=== PATIENT | female | born 1995 | race Two or more races ===

== ENCOUNTER → 2017-04-13 19:09 | Outpatient (CLI) | payer SELFPAY ==
[2015-06-18 18:36] VITALS: BMI 30.5
[~2017-04-13 19:09] MED LIST: CELEXA20 MG PO; IBUPROFEN600 MG PO; MOTRIN600 MG PO; PERCOCET 5-3251 TAB PO
== END | disposition home or self-care (01) ==
LOC: D.LDO 19:09
PROVIDERS: Obstetrics & Gynecology
DX: O26.893 Other specified pregnancy related conditions, third trimester (principal); Z3A.32 32 weeks gestation of pregnancy

== ENCOUNTER → 2017-04-19 16:17 | Outpatient (CLI) | payer SELFPAY ==
[2015-06-18 18:36] VITALS: BMI 30.5
[2017-04-19 18:20] LABS: APPEARANCE CLEAR (CLEAR); BILIRUBIN NEGATIVE (NEGATIVE); COLOR YELLOW (YELLOW); GLUCOSE NEGATIVE (NEGATIVE); KETONE NEGATIVE (NEGATIVE); NITRITE NEGATIVE (NEGATIVE); PROTEIN NEGATIVE (NEGATIVE); UROBILINOGEN NORMAL (NORMAL)
== END | disposition home or self-care (01) ==
LOC: D.LDO 16:17
PROVIDERS: Obstetrics & Gynecology
DX: O26.893 Other specified pregnancy related conditions, third trimester (principal); Z3A.32 32 weeks gestation of pregnancy

== ENCOUNTER → 2017-04-25 17:01 | Outpatient (CLI) | payer SELFPAY ==
[2015-06-18 18:36] VITALS: BMI 30.5
[2017-04-25 17:49] LABS: APPEARANCE CLEAR (CLEAR); BILIRUBIN NEGATIVE (NEGATIVE); COLOR STRAW (YELLOW); GLUCOSE NEGATIVE (NEGATIVE); KETONE NEGATIVE (NEGATIVE); NITRITE NEGATIVE (NEGATIVE); PROTEIN NEGATIVE (NEGATIVE); UROBILINOGEN NORMAL (NORMAL)
== END | disposition home or self-care (01) ==
LOC: D.LDO 17:01 → D.LABREF 17:01
PROVIDERS: Obstetrics & Gynecology
DX: O26.893 Other specified pregnancy related conditions, third trimester (principal); Z3A.34 34 weeks gestation of pregnancy; R10.2 Pelvic and perineal pain; R22.43 Localized swelling, mass and lump, lower limb, bilateral; R11.0 Nausea

== ENCOUNTER 2017-06-02 08:26 | Inpatient (IN) | payer MEDICAID ==
[~2017-06-02] VITALS: Ht 149.9 cm; Wt 71.7 kg
[~2017-06-02 08:26] MED LIST changes: -CELEXA20 MG PO; -MOTRIN600 MG PO
[2017-06-02 08:54] LABS: HEMATOCRIT 37.6 % (36.0-48.0); HEMOGLOBIN 12.8 g/dL (12-16); MCH 27.8 pg (26.0-34.0); MCV 81.7 fL (80.0-100.0); MEAN PLATELET VOLUME 10.2 fL (7.4-10.4); RBC 4.6 10x6/uL (4.00-5.40); RDW 16.4 % (11.5-14.5); WBC 9.6 10x3/uL (4.8-10.8)
[2017-06-02 10:30] LABS: APPEARANCE CLEAR (CLEAR); BILIRUBIN NEGATIVE (NEGATIVE); COLOR YELLOW (YELLOW); GLUCOSE NEGATIVE (NEGATIVE); KETONE NEGATIVE (NEGATIVE); NITRITE NEGATIVE (NEGATIVE); PROTEIN NEGATIVE (NEGATIVE); SPECIFIC GRAVITY 1.005 (1.005-1.020); UROBILINOGEN NORMAL (NORMAL)
[2017-06-02] MEDS ORDERED: CELEXA20 MG PO (10:32)
[2017-06-02 10:33] VITALS: BP 119/78; Ht 149.9 cm; Wt 71.7 kg
--- NOTE | 2017-06-02 15:00 | NUR ---
pt calls out department chairperson light, pt wishes to get up to br. fundus firm, u/1, small rubra lochia, no clots. iv pitocin completed. iv saline locked. pt assisted up to br, gait slow and steady. to br, voids per self without difficulty. no clots noted. pericare done per self with warm wet washcloths, and peribottle. clean peripanties, and pads on. clean gown on. pt then transferred to #[id number] by wheelchair.
--- NOTE | 2017-06-02 15:25 | NUR ---
to bed, oriented to room. sr up x 2, call light and phone within reach. family at bedside. transported to [facility] by crib. nsy notified. pt requests ice water, served. denies other needs at this time.
--- NOTE | 2017-06-02 17:00 | NUR ---
dietary serves supper tray. pt denies needs at this time. family at bedside. sr up x2, call light and phone within reach.
--- NOTE | 2017-06-02 18:00 | NUR ---
pt denies needs at this time. family at bedside. sr up x 2, call light and phone within reach.
--- NOTE | 2017-06-02 19:21 | NUR ---
RN TO BEDSIDE. PT BREAST FEEDING INFANT AT THIS TIME. DENIES NEEDS. S/O AT BEDSIDE. BED IN LOW POSITION WITH UPPER SIDE RAILS RAISED X2. CL AND PHONE WITHIN REACH. WILL CONT TO MONITOR AND ASSIST PRN.
[2017-06-02 19:49] VITALS: BP 117/73
--- NOTE | 2017-06-02 19:49 | NUR ---
RN TO BEDSIDE. PT REPORTS THAT SHE JUST COMPLETED BREAST FEEDING. SHIFT ASSESSMENT COMPLETED. VSS. FUNDUS FIRM, U2 AND MIDLINE, SMALL AMT RUBRA LOCHIA TO PERIPAD, NO CLOTS. PAIN 4/10, INTERMITTENT ABD CRAMPING. RESPIRATIONS REGULAR AND UNLABORED, BREATH SOUNDS CLEAR AND EQUAL. BOWEL SOUNDS PRESENT AND ACTIVE X4. PT REPORTS THAT SHE IS PASSING FLATUS. PERINUM INTACT, WITH MILD SWELLING NOTED. REFUSES ICE PACK AT THIS TIME. MOTRIN GIVEN FOR PAIN. ICE WATER AND CUP OF ICE PROVIDED. BED IN LOW POSITION WITH UPPER SIDE RAILS RAISED X2. CL AND PHONE WITHIN REACH. WILL CONT TO MONITOR AND ASSIST PRN.
--- NOTE | 2017-06-02 20:35 | NUR ---
PAIN REASSESSMENT COMPLETED. PAIN 07/31. DENIES ADDITIONAL NEEDS AT THIS TIME. BONDING WITH . S/O AT BEDSIDE SUPPORTIVE AND ATTENTIVE PT AND 'S NEEDS. BED IN LOW POSITION WITH UPPER SIDE RAILS RAISED X2. CL AND PHONE WITHIN REACH. WILL CONT TO MONITOR AND ASSIST PRN.
--- NOTE | 2017-06-02 21:10 | NUR ---
RN TO BEDSIDE FOR ROUNDS. PT UP IN BATHROOM VOIDING. STATES THAT SHE PASSED "A FEW CLOTS." 3 DIME SIZED CLOTS NOTED TO PERIPAD, 1 QUARTER SIZED CLOT NOTED IN TOILET. SMALL AMT RUBRA LOCHIA NOTED TO PERIPAD. PT BACK TO BED. FUNDUS CHECK DONE, REMAINS FIRM U2 AND MIDLINE. DENIES NEEDS AT THIS TIME. DENIES PAIN. S/O AT BEDSIDE, SUPPORTIVE AND ATTENTIVE TO PT AND . INFANT IN S/O ARMS. BED IN LOW POSITION WITH UPPER SIDE RAILS RAISED X2. CL AND PHONE WITHIN REACH. WILL CONT TO MONITOR AND ASSIST PRN.
--- NOTE | 2017-06-02 22:18 | NUR ---
RN TO BEDSIDE FOR ROUNDS. PT SITTING UP IN BED BREAST FEEDING . SHAHNAZ CLEMENS RN AT BEDSIDE ASSISTING PT. PT DENIES NEEDS AT THIS TIME. C/O CRAMPING, BUT DENIES NEED FOR INTERVENTION. BED IN LOW POSITION WITH UPPER SIDE RAILS RAISED X2. CL AND PHONE WITHIN REACH. WILL CONT TO MONITOR AND ASSIST PRN.
--- NOTE | 2017-06-03 00:02 | NUR ---
RN TO BEDSIDE FOR ROUNDS. PT RESTING QUIETLY WITH EYES CLOSED ON LEFT SIDE. RESPIRATIONS REGULAR AND UNLABORED, NO S/S OF DISTRESS NOTED. S/O RESTING ON COUCH AT BEDSIDE. INFANT IN OPEN CRIB AT BEDSIDE RESTING QUIETLY, RESPIRATIONS REGULAR AND UNLABORED, NO S/S OF DISTRESS NOTED. BED IN LOW POSITION WITH UPPER SIDE RAILS RAISED X2. CL AND PHONE WITHIN REACH. WILL CONT TO MONITOR AND ASSIST PRN.
--- NOTE | 2017-06-03 02:40 | NUR ---
RN TO BEDSIDE FOR ROUNDS. PT RESTING WITH EYES CLOSED. FOUND IN BED LAYING NEXT TO MOM. PT WOKE BY RN, REINFORCED THAT INFANT CAN'T BE IN BED WITH HER WHILE SHE IS SLEEPING, VERBALIZED UNDERSTANDING AND REQUESTED RN TAKE INFANT TO NBN. C/O ABD CRAMPING, 10/28, MOTRIN GIVEN. ICE WATER PROVIDED. DENIES ADDITIONAL NEEDS. S/O REMAINS ON COUCH AT BEDSIDE RESTING. BED IN LOW POSITION WITH UPPER SIDE RAILS RAISED X2. CL AND PHONE WITHIN REACH. INFANT TAKEN TO NBN BY RN PER PT REQUEST. WILL CONT TO MONITOR AND ASSIST PRN.
--- NOTE | 2017-06-03 03:25 | NUR ---
PAIN REASSESSMENT COMPLETED. PT RESTING WITH EYES CLOSED ON RIGHT SIDE. RESPIRATIONS REGULAR AND UNLABORED. NO S/S OF DISTRESS NOTED. BED IN LOW POSITION WITH UPPER SIDE RAILS RAISED X2. CL AND PHONE WITHIN REACH. INFANT REMAINS IN NBN. WILL CONTINUE TO MONITOR AND ASSIST PRN.
--- NOTE | 2017-06-03 04:10 | NUR ---
RN TO BEDSIDE FOR ROUNDS. PT RESTING QUIETLY WITH EYES CLOSED LAYING ON LEFT SIDE. RESPIRATIONS REGULAR AND UNLABORED, NO S/S OF DISTRESS. REMAINS IN NBN. BED IN LOW POSITION WITH UPPER SIDE RAILS RAISED X2. CL AND PHONE WITHIN REACH. WILL CONT TO MONITOR AND ASSIST PRN.
--- NOTE | 2017-06-03 06:08 | NUR ---
RN TO BEDSIDE FOR ROUNDS. LAB AT BEDSIDE DRAWING LABS. PT STATES PAIN 2/10, INTERMITTENT ABD CRAMPING. DENIES NEEDS AT THIS TIME. S/O REMAINS AT BEDSIDE. PT STATES THAT SHE IS STILL VOIDING WITHOUT DIFFICULTY AND HAS HAD NO MORE CLOTS SINCE PREVIOUS ASSESSMENT. BED IN LOW POSITION WITH UPPER SIDE RAILS RAISED X2. CL AND PHONE WITHIN REACH. WILL CONT TO MONITOR AND ASSIST PRN.
[2017-06-03 06:34] LABS: BASOPHILS 0.2 % (0-2); EOSINOPHILS 0.5 % (0-7); IMMATURE GRANULOCYTES 0.4 % (0-5); LYMPHOCYTES 32.4 % (15-50); MCH 27.4 pg (26.0-34.0); MCHC 33.4 g/dL (31.0-37.0); MCV 81.8 fL (80.0-100.0); MONOCYTES 4.5 % (2-11); PLATELET COUNT 183 10x3/uL (130-400); RDW 16.5 % (11.5-14.5); WBC 10.8 10x3/uL (4.8-10.8)
[2017-06-03 06:35] LABS: HEMATOCRIT 29.3 % (36.0-48.0); HEMOGLOBIN 9.8 g/dL (12-16); RBC 3.58 10x6/uL (4.00-5.40)
--- NOTE | 2017-06-03 07:12 | NUR ---
REPORT TO DAY SHIFT.
--- NOTE | 2017-06-03 07:54 | NUR ---
AM ASSESSMENT COMPLETED CHARTED ON FLOWSHEET. FUNDUS FIRM AT U/U WITH LIGHT BLEEDING TO SERGEY PAD. PT FEEDING INFANT AT THIS TIME AND DENIES ANY QUESTIONS OR CONCERN. SPOUSE AND TODDLER SON ALSO AT BEDSIDE.
[2017-06-03 08:22] LABS: RAPID PLASMA REAGIN Non Reactive (Non Reactive)
--- NOTE | 2017-06-03 10:30 | NUR ---
ROUNDS MADE, PT DENIES ANY NEEDS AT THIS TIME.
--- NOTE | 2017-06-03 12:23 | NUR ---
PT SITTING UP IN BED WITH TO BREAST, REGULAR DIET TRAY SERVED AND LARGE ICE WATER PER REQUEST. ALSO PLACED TOWELS AND SHOWER SUPPLIES IN BATHROOM AND PT STATES UNDERSTANDING TO CALL NURSE IF ANY ASSISTANCE IS NEEDED.
--- NOTE | 2017-06-03 13:45 | NUR ---
PT CALLS FOR NURSE, THIS RN TO ROOM. PT ASKING FOR A STOOL SOFTNER, ORDERS CHECKED AND EXPLAINED TO HER THAT AT THIS TIME SHE DID NOT HAVE AN ORDER FOR THIS BUT MD COULD BE CALLED OR SHE COULD TRY WARM LIQUIDS. HOT TEA PROVIDED PER REQUEST. RATES PAIN AT 3/10 AND DENIES ANY OTHER NEEDS AT THIS TIME.
--- NOTE | 2017-06-03 15:00 | NUR ---
DENIES ANY NEEDS, VISITING WITH FRIENDS FAMILY AT BEDSIDE. IN ROOM AT THIS TIME ALSO.
--- NOTE | 2017-06-03 19:10 | NUR ---
REPORT REC'D FROM Stacey LIMON RN. PT REC'D SITTING UP IN BED. DENIES NEEDS AT THIS TIME. S/O AT BEDSIDE. PLAN OF CARE DISCUSSED WITH PT, VERBALIZES UNDERSTANDING AND DENIES QUESTIONS. BED IN LOW POSITION WITH UPPER SIDE RAILS RAISED X2. CL AND PHONE WITHIN REACH. WILL CONT TO MONITOR AND ASSIST PRN.
[2017-06-03 19:27] VITALS: BP 113/63
--- NOTE | 2017-06-03 19:27 | NUR ---
SHIFT ASSESSEMT COMPLETED. VSS. FUNDUS FIRM, U2 AND MIDLINE, SMALL AMT RUBRA LOCHIA PRESENT TO PERIPAD, NO CLOTS NOTED. NO PERINEAL SWELLING NOTED. PT STATES THAT SHE IS VOIDING WITHOUT DIFFICULTY AND HAS NOT BEEN PASSING CLOTS TODAY AND BLEEDING HAS BEEN "PRETTY LIGHT." RESPIRATION REGULAR AND UNLABORED, BREATH SOUNDS CLEAR AND EQUAL BILATERALLY. BOWEL SOUNDS PRESENT AND ACTIVE X4 QUADRANTS, PT STATES THAT SHE IS PASSING FLATUS AND FEELS THE NEED TO HAVE BM BUT HASN'T BEEN ABLE TO. EDUCATED PT ON ORDER FOR MILK OF MAG AND WHEN IT WAS SCHEDULED, PT REQUESTED TO TAKE MEDICATION NOW, GIVEN PER REQUEST. PAIN 6/10, ABD CRAMPING INTERMITTENTLY, STATES THAT SHE IS CRAMPING FOLLOWING BREAST FEEDING AND THAT IT INTENSIFIED FOLLOWING FUNDAL CHECK. MOTRIN ALSO GIVEN. ICE WATER PROVIDED. DENIES ADDITIONAL NEEDS. S/O AT BEDSIDE BONDING WITH INFANT, SUPPORTIVE AND ATTENTIVE TO PT AND INFANT. BED IN LOW POSITION WITH UPPER SIDE RAILS RAISED X2. CL AND PHONE WITHIN REACH. WILL CONT TO MONITOR AND ASSIST PRN.
--- NOTE | 2017-06-03 20:15 | NUR ---
PAIN REASSESSMENT COMPLETED. PT SITTING UP IN BED HOLDING INFANT. DENIES NEEDS AT THIS TIME. S/O REMAINS AT BEDSIDE. BED IN LOW POSITION WITH UPPER SIDE RAILS RAISED X2. CL AND PHONE WITHIN REACH. WILL CONT TO MONITOR AND ASSIST PRN.
--- NOTE | 2017-06-03 21:22 | NUR ---
RN TO BEDSIDE FOR ROUNDS. ICE CHIPS PROVIDE. PT CONVERSING WITH S/O AND WATCHING TV. DENIES ADDITIONAL NEEDS AND PAIN. IN OPEN CRIB AT BEDSIDE RESTING QUEITLY, RESPIRATIONS REGULAR AND UNLABORED, NO S/S OF DISTRESS NOTED. BED REMAINS IN LOW POSITION WITH UPPER SIDE RAILS RAISED X2. CL AND PHONE WITHIN REACH. WILL CONT TO MONITOR AND ASSIST PRN.
--- NOTE | 2017-06-03 22:27 | NUR ---
RN TO BEDSIDE FOR ROUNDS. PT WATCHING TV AND LOOKING AT CELL PHONE. DENIES ADDITIONAL NEEDS AND PAIN AT THIS TIME. BED IN LOW POSITION WITH UPPER SIDE RAILS RAISED X2. CL AND PHONE WITHIN REACH. WILL CONT TO MONITOR AND ASSIST PRN.
--- NOTE | 2017-06-04 00:29 | NUR ---
RN TO BEDSIDE FOR ROUNDS. PT WATCHING TV. PAIN 2/10, ABD CRAMPING, DENIES NEED FOR INTERVENTION AT THIS TIME. DENIES NEEDS. S/O REMAINS AT BEDSIDE. BED IN LOW POSITION WITH UPPER SIDE RAILS RAISED X2. CL AND PHONE WITHIN REACH. WILL CONT TO MONITOR AND ASSIST PRN.
--- NOTE | 2017-06-04 01:58 | NUR ---
PT CALLS VIA CL. REPORTS THAT ABD CRAMPING INCREASED TO 4/10 FOLLOWING BREAST FEEDING. REQUESTS MOTRIN. GIVEN PER REQUEST AND ORDER. ICE WATER GIVEN. DENIES ADDITIONAL NEEDS. INFANT BACK TO NBN PER PT REQUEST. S/O REMAINS AT BEDSIDE. BED IN LOW POSITION WITH UPPER SIDE RAILS RAISED X2. CL AND PHONE WITHIN REACH. WILL CONT TO MONITOR AND ASSIST PRN.
--- NOTE | 2017-06-04 02:45 | NUR ---
PAIN REASSESSMENT COMPLETED. PT RESTING WITH EYES CLOSED LAYING ON RIGHT SIDE. RESPIRATIONS REGULAR AND UNLABORED, NO S/S OF DISTRESS NOTED. BED IN LOW POSITION WITH UPPER SIDE RAILS RAISED X2. CL AND PHONE WITHIN REACH. WILL CONT TO MONITOR AND ASSIST PRN. S/O REMAINS AT BEDSIDE.
--- NOTE | 2017-06-04 04:40 | NUR ---
RN TO BEDSIDE FOR ROUNDS. PT RESTING WITH EYES CLOSED LAYING ON LEFT SIDE. RESPIRATIONS REGULAR AND UNLABORED, NO S/S OF DISTRESS NOTED. BED IN LOW POSITION WITH UPPER SIDE RAILS RAISED X2. CL AND PHONE WITHIN REACH. S/O REMAINS AT BEDSIDE. WILL CONT TO MONITOR AND ASSIST PRN.
--- NOTE | 2017-06-04 06:18 | NUR ---
RN TO BEDSIDE FOR ROUNDS. PT RESTING WITH EYES CLOSED LAYING ON RIGHT SIDE. RESPIRATIONS REGULAR AND UNLABORED. NO S/S OF DISTRESS NOTED. BED IN LOW POSITION WITH UPPER SIDE RAILS RAISED X2. CL AND PHONE WITHIN REACH. S/O REMAINS AT BEDSIDE.
--- NOTE | 2017-06-04 07:45 | NUR ---
AM ASSESSMENT COMPLETED CHARTED ON FLOWSHEET. PT WITH INFANT TO BREAST DENIES ANY CLOTS WITH VOIDS AND STATES THAT HER BLEEDING IS LESS THAN HER PERIODS. DENIES ANY NEEDS AT THIS TIME. CALL LIGHT IN REACH WITH SIDE RAILS UP X2.
--- NOTE | 2017-06-04 08:45 | NUR ---
LE@8:00 Kelle Cabral 06/[birth year]/17 S: Patient states, " is going good, I do both formula and breastfeed. I fed at 7:11 for 20 minutes. I didn't give formula after feeding. My plan is when I go home to offer the breast first then formula if needed. When I return back to work baby will be formula fed in the day and breastfed at night. I feel good and really don't have any questions or concerns about . My nipples aren't sore and I do think he latches fine. O: Patient lying in bed with toddler child, FOB lying down with infant on sofa, light off in room. Praised patient for and asked if she has any questions? Encouraged to continue to latch on demand and explained breastmilk composition. Infant should feed on demand when showing feeding cues (Provided handout), this will help with establishing your milk supply, and allow baby to determine when baby is finish. It is normal for to feed between 15-20 minutes. Every baby is different, which meaning, feeding time frames can vary per . Explained the benefits of skin to skin and how to hold for feeding: makes sure baby is turned tummy to tummy, nose opposite of nipple, gently support infant head and allow to self-latch. Asked if any difficulties with latching infant or sore nipples? does take time and patience in the beginning. The more is placed to the breast for feedings, this will help with milk production. Explained and provided dirty diaper count handout for when she is home with to help determine baby is eating enough. Asked if any questions? A: Patient appears confident with and expresses no questions or concerns. P: Continue to observe early feeding cues and feed on demand for the next 24 hours.
--- NOTE | 2017-06-04 09:40 | NUR ---
PT UP TO SHOWER, TOWELS PLACED IN BATHROOM. REASSURED THAT SHE COULD REDRESS IN HER CLOTHING. SIG OTHER REMAINS ASLEEP ON COUCH.
--- NOTE | 2017-06-04 11:00 | NUR ---
Meds given as charted on emar. pt also provided with jason pad and personnel item bags. States understanding that no discharge order had been received yet and would be after clinic closed around 1200 today before md would make rounds. denies any other questions or needs at this time.
--- NOTE | 2017-06-04 12:40 | NUR ---
pt calls out asking if or when Dr Coburn was going to give discharge. Explained that would attempt to call him or that nurse would call clinic.
--- NOTE | 2017-06-04 13:00 | NUR ---
Dr Coburn on unit and in to see patient. Verbal order received for discharge with follow up in 4 weeks. Script for Motrin 600mg in pts chart.
[2017-06-04] MEDS ORDERED: MOTRIN600 MG PO (13:26)
--- NOTE | 2017-06-04 13:40 | NUR ---
To room to go over discharge instructions with pt and she has already left. Verified with nursery that infants discharge was completed. Attempted to call Dr Coburn and notify him but he is not environmental studies professor, Acoustical Logging Engineer doctor is Dr Palafox and she was also notified.
--- NOTE | 2017-07-07 13:27 | DS ---
PATIENT:ROGERIO TA :89 MEDICAL RECORD: [id number] DISCHARGE SUMMARY ADMISSION DATE: 06/02/17 DISCHARGE DATE: 06/04/17 HOSPITAL COURSE: The patient was a 38-year-old G4, P3, admitted in active labor at 9 cm. The patient was noted to be A positive, group B strep positive, and rubella immune. PAST MEDICAL AND SURGICAL HISTORY: The patient reported no significant past medical or surgical history. ALLERGIES: NO KNOWN DRUG ALLERGIES OTHER A REACTION ITCHING FROM TYLENOL. ALTHOUGH, THE PATIENT REPORTED TAKING TYLENOL IN THE PAST WITHOUT PROBLEM. FAMILY HISTORY: The patient reported no significant family history. SOCIAL HISTORY: Negative times 3. PHYSICAL EXAMINATION: VITAL SIGNS: On initial examination, vital signs were noted to be stable. The patient was afebrile and normotensive. LUNGS: Clear to auscultation. PELVIS: Uterus was appropriately sized and appropriately tender. Initial examination, the patient was noted to be 9 cm dilated with spontaneous rupture of membranes. EXTREMITIES: Lower extremities were free of Homans sign. LABORATORY DATA: heart rate tracing was category 1. Admitting hemoglobin was found to be 12.8. ASSESSMENT AND PLAN: At that time, term intrauterine at 40 weeks with active labor and spontaneous rupture of membranes. The patient proceeded to have a precipitous delivery. The patient with known group B strep status. Antibiotics were started. However, the 4-hour optimal treatment time was not obtained. The patient did well with delivery. Delivery note is as on the chart. The patient did well overnight on day #0, tolerating p.o. pain meds, general diet, voiding freely and ambulating well. On the morning of day #1 status post precipitous normal spontaneous vaginal delivery. Vital signs remained stable. The patient was afebrile and normotensive. Hemoglobin was 9.8. Uterus was infraumbilical and nontender, minimal lochia at that time. The patient was discharged home on day #1, although the stayed for 48 hours observation due to inadequate group B strep treatment. TRANSINT:[id number] Voice Confirmation ID: [id number] DOCUMENT ID: [id number] BEAU BLAIR MD at 1322 CC: [id number] DICTATION DATE: 07/03/17 0734 VASCULAR SURGEON: 07/03/17 1327 DIS IN 06/04/17 [facility] [address] [facility] [place] [address]
== END 2017-06-04 13:45 | disposition home or self-care (01) | DRG 775 ==
LOC: D.LDO 08:26 → D.LD 08:34
PROVIDERS: ADMIT Obstetrics & Gynecology
PROC: 10E0XZZ Delivery of Products of Conception, External Approach (ICD-10-PCS; principal; 2017-06-02)
DX: O99.824 Streptococcus B carrier state complicating childbirth (principal); Z3A.40 40 weeks gestation of pregnancy; Z37.0 Single live birth; O71.82 Other specified trauma to perineum and vulva; O62.3 Precipitate labor

== ENCOUNTER 2017-07-08 19:41 | Emergency (ER) | payer MEDICAID ==
[2017-06-02 10:33] VITALS: BMI 32.0
[~2017-07-08 19:41] MED LIST changes: +CELEXA20 MG PO; +MOTRIN600 MG PO
[2017-07-08 21:09] LABS: BASOPHILS 0.1 % (0-2); EOSINOPHILS 0 % (0-7); HEMATOCRIT 33.5 % (36.0-48.0); HEMOGLOBIN 11.1 g/dL (12-16); IMMATURE GRANULOCYTES 0.5 % (0-5); LYMPHOCYTES 5.1 % (15-50); MCH 26.7 pg (26.0-34.0); MCHC 33.1 g/dL (31.0-37.0); MCV 80.5 fL (80.0-100.0); MONOCYTES 3.9 % (2-11); NEUTROPHILS 90.4 % (40-80); RBC 4.16 10x6/uL (4.00-5.40); RDW 13.9 % (11.5-14.5); WBC 15.2 10x3/uL (4.8-10.8)
[2017-07-08 21:10] LABS: PLATELET COUNT 234 10x3/uL (130-400)
[2017-07-08 21:11] LABS: APPEARANCE CLEAR (CLEAR); COLOR YELLOW (YELLOW); SPECIFIC GRAVITY 1.005 (1.005-1.020)
[2017-07-08 21:12] LABS: BILIRUBIN NEGATIVE (NEGATIVE); GLUCOSE NEGATIVE (NEGATIVE); KETONE NEGATIVE (NEGATIVE); NITRITE NEGATIVE (NEGATIVE); PROTEIN NEGATIVE (NEGATIVE); UROBILINOGEN NORMAL (NORMAL)
[2017-07-08 21:15] LABS: EPITHELIAL CELLS 0-5 /hpf (0-5); WHITE CELLS - URINE 0-5 /hpf (0-5)
[2017-07-08 21:33] LABS: ALBUMIN 4.1 g/dL (3.4-5.0); ALKALINE PHOSPHATASE 82 U/L (46-116); ALT (SGPT) 26 U/L (10-68); CALC OSMOLALITY 273 mosm/kg (275-300); CALCIUM 8.8 mg/dL (8.5-10.1); CARBON DIOXIDE 24.3 mmol/L (21.0-32.0); CHLORIDE - SERUM 98 mmol/L (98-107); CREATININE - SERUM 0.7 mg/dL (0.6-1.3); GLUCOSE 119 mg/dL (74-106); POTASSIUM - SERUM 3.3 mmol/L (3.5-5.1); PROTEIN - SERUM 7.9 g/dL (6.4-8.2); SODIUM 136 mmol/L (136-145); UREA NITROGEN 15 mg/dL (7-18); eGFR NON AFRICAN AMERICAN > 90 mL/min (90-120)
== END 2017-07-08 23:23 | disposition home or self-care (01) ==
LOC: D.ER 19:41
PROVIDERS: Nurse Practitioner Family
DX: N61.0 Mastitis without abscess (principal); B34.9 Viral infection, unspecified; J11.1 Influenza due to unidentified influenza virus with other respiratory manifestations

== ENCOUNTER 2017-10-02 13:28 | Emergency (ER) | payer MEDICAID ==
[2017-06-02 10:33] VITALS: BMI 32.0
== END 2017-10-02 14:34 | disposition home or self-care (01) ==
LOC: D.ER 13:28
DX: K04.7 Periapical abscess without sinus (principal); K08.89 Other specified disorders of teeth and supporting structures